=== PATIENT | male | born 1970 | race Caucasian/White ===

== ENCOUNTER 2017-01-14 09:12 | Emergency (ER) | payer OTHER ==
[2017-01-14] MEDS ORDERED: DOXYcycline CAP(*) 100 MG PO ONE (11:35)
--- NOTE | 2017-01-14 11:39 | UC ---
Skin Complaint HPI - HPI Summary HPI Summary: 47 male presents with complaint of having a tick bite. Patient noticed the tick yesterday 01/14/17 and removed tick on his own. He noticed today that the redness around the bite has increased, which is why he came in today. He is unsure when he got the bite. States it could have been Saturday or Saturday of last week. Admits to the tick being alive upon removal. Patient has been bit by a tick in the past. Denies seeing a bulls eye rash. Denies arthralgias, chest pain, headache and fever/chills. Denies discharge from wound. Did not notice tick bites in any other part of body. Does admit to pruritis and minimal swelling of the area. - History of Current Complaint Chief Complaint: UCSkin Time Seen by Provider: 01/14/17 10:58 Stated Complaint: TICK Hx Obtained From: Patient Onset/Duration: Sudden Onset Skin Exposure Onset/Duration: Days Ago, Worse Since: Onset Severity: Mild Current Severity: Mild Pain Intensity: 0 Pain Scale Used: 0-10 Numeric Location: Other - left anterior forearm Character: Swelling, Pruritus, Redness Aggravating: Nothing Alleviating: Nothing Associated Signs & Symptoms: Positive: Rash Related History: Insect Bite/Sting - tick - Allergy/Home Medications Allergies/Adverse Reactions: Allergies Allergy/AdvReac Type Severity Reaction Status Date / Time No Known Allergies Allergy Verified 01/14/17 10:07 Home Medications: Home Medications Aspirin [Aspirin 81 MG TAB] 81 mg PO DAILY 01/14/17 [History Confirmed 01/14/17] Atenolol [Tenormin 25 MG] 25 mg PO DAILY 01/14/17 [History Confirmed 01/14/17] Simvastatin TAB(NF) [Zocor(NF)] 20 mg PO DAILY 01/14/17 [History Confirmed 01/14] Review of Systems Constitutional: Negative Skin: Other - erythema, pruritis Eyes: Negative ENT: Negative Respiratory: Negative Cardiovascular: Negative Gastrointestinal: Negative Motor: Negative Neurovascular: Negative Musculoskeletal: Negative Neurological: Negative Psychological: Negative All Other Systems Reviewed And Are Negative: Yes PMH/Surg Hx/FS Hx/Imm Hx Cardiovascular History Of: Reports: Hypertension - Surgical History Surgical History: Yes Surgery Procedure, Year, and Place: RIGHT KNEE ARTHOSCOPY - Family History Known Family History: Positive: Other - no FMH of anyphalaxis - Social History Alcohol Use: Occasionally Substance Use Type: None Smoking Status (MU): Never Smoked Tobacco Physical Exam Triage Information Reviewed: Yes Appearance: Well-Appearing, No Pain Distress, Well-Nourished Vital Signs: Initial Vital Signs Temp 98.9 F 01/14/17 10:02 Pulse 61 01/14/17 10:02 Resp 16 01/14/17 10:02 BP 133/80 01/14/17 10:02 Pulse Ox 98 01/14/17 10:02 Vital Signs Reviewed: Yes Eyes: Positive: Conjunctiva Clear ENT: Positive: Normal ENT inspection, Hearing grossly normal Neck: Positive: Supple, Nontender, No Lymphadenopathy Respiratory: Positive: Chest non-tender, Lungs clear, Normal breath sounds, No respiratory distress, No accessory muscle use Cardiovascular: Positive: RRR, No Murmur, Pulses Normal, Brisk Capillary Refill Musculoskeletal Exam: Normal Neurological Exam: Normal Psychological Exam: Normal Skin: Positive: Other - erythema circular surround tick bite measuring approximately 3cm by 3cm, minimal swelling, complaint of pruritis, no discharge or pain. No sign of erythema migrans at this time. Rest of exposed areas were checked. Patient encouraged to check entire body, including groin axilla etc when he gets home. Course/Dx - Course Course Of Treatment: educated on erythema migrans and lyme disease symptoms. shown a picture and given instructions for signs and symptoms to watch out for. given one dose of prophylactic doxycycline in office. follow up with pcp, appointment and told to have pcp check it out. benedryl topical cream to help with itch - Differential Diagnoses - Skin Complaint Differential Diagnoses: Cellulitis, Tick Born Illness, Urticaria, Other - Diagnoses Provider Diagnoses: tick bite L forearm Discharge - Discharge Plan Condition: Stable Disposition: HOME Patient Education Materials: Tick Bite (ED), Lyme Disease (ED) Forms: *Gen. Provider Communication Referrals: Cookie Montano MD [Primary Care Provider] - Additional Instructions: Watch tick bite as we discussed for the erythema migrans "bullseye" rash. If you develop this you may need to have further testing and treatment for Lyme Disease. I have printed instructions and things to look out for, for Lyme Disease. Follow up and have your pcp look at it at your appointment on Saturday. Use an anti-itch topical cream or oral benedryl before bedtime for itching of the area.
[2017-01-14 11:49] VITALS: BP 134/90
== END 2017-01-14 11:47 | disposition home or self-care (01) ==
LOC: UCCORT 09:12
DX: S50.862A Insect bite (nonvenomous) of left forearm, initial encounter (principal); W57.XXXA Bitten or stung by nonvenomous insect and other nonvenomous arthropods, initial encounter; Y93.9 Activity, unspecified; Y92.9 Unspecified place or not applicable; R21 Rash and other nonspecific skin eruption; I10 Essential (primary) hypertension
CPT/HCPCS: 99212; A9270-GY; G0463